=== PATIENT | male | born 1970 ===

== ENCOUNTER 2019-07-18 17:20 | Outpatient (CLI) | payer OTHER, SELFPAY ==
--- NOTE | ~2019-07-18 | XR_ITS ---
EXAMINATION: XR chest 2V 07/18/2019 17:34 INDICATION: Cough for 3 weeks PROCEDURE: 2 view chest COMPARISON: 04/11/2011 FINDINGS: The lungs are clear. The lungs are hyperinflated which is consistent with, but not diagnost ic of chronic obstructive pulmonary disease. The cardiomediastinal silhouette is within normal limits . There are no pleural effusions. There is no pneumothorax suspected. IMPRESSION: 1: NO ACUTE CARDIOPULMONARY DISEASE. Reviewed, dictated and finalized at location A.
== END 2019-07-18 17:21 | disposition home or self-care (01) ==
LOC: ANHIMG 17:23
PROVIDERS: PCP Family Medicine; Visit Provider Family Medicine
DX: R05 Cough (principal)
CPT/HCPCS: 71046